=== PATIENT | male | born 1990 | race Caucasian/White ===

== ENCOUNTER 2017-08-28 17:16 | Emergency (ER) | payer SELFPAY ==
[~2017-08-28] VITALS: Ht 182.9 cm; Wt 104.3 kg
--- NOTE | 2017-08-28 17:20 | NUR ---
BIB [facility] 58,NOTED TO BE DROWSY AND DIFFICULT TO AROUSE WHEN HE WALKED INTO A REHAB; NARCAN 2 MG IVP GIVEN BY EMS, WITH IMPROVEMENT. PATIENT ARRIVED A/OX 2. BREATHING EVEN AND UNLABORED. NO SOB, NAD. VITALS STABLE. SAFETY AND COMFORT MEASURES IN PLACE. AWAITING MD ORDERS.
--- NOTE | 2017-08-28 17:34 | NUR ---
CALL BACK FROM [place] FERNANDE[place] AT [phone], STS HE WILL HAVE PT'S MOM CALL US. [facility]. HE FURTHER SAID THAT HE HOPE THE PATIENT WOULD GO BACK THERE.
--- NOTE | 2017-08-28 17:41 | NUR ---
CORRECTION:[facility]
--- NOTE | 2017-08-28 18:06 | NUR ---
PATIENTS MOTHER CALLED, ETA 1 HR.
--- NOTE | 2017-08-28 19:14 | NUR ---
Kashmir sanders in [facility] - 08/28/17 at 1915 by SHARON REPORT RECEIVED FROM TAYLOR BRUNO FOR MARIELLE.
--- NOTE | 2017-08-28 19:14 | NUR ---
REPORT GIVEN TO BENJAMIN VAZQUEZ FOR MARIELLE.
--- NOTE | 2017-08-28 19:15 | NUR ---
REPORT RECEIVED FROM TAYLOR BRUNO FOR MARIELLE.
--- NOTE | 2017-08-28 20:50 | NUR ---
IV removed. Catheter intact and site benign. Pressure and 4x4 applied to site. No bleeding noted. Patient discharged with family to home in stable condition. Written and verbal after care instructions given. Patient verbalizes understanding of instruction. Patient is awake and alert to self, day, and place. Patient ambulatory with a steady gait.
[2017-08-28 20:52] VITALS: BP 115/71
== END 2017-08-28 20:53 | disposition home or self-care (01) ==
LOC: ER 17:17
DX: T40.1X1A Poisoning by heroin, accidental (unintentional), initial encounter (principal); T42.4X1A Poisoning by benzodiazepines, accidental (unintentional), initial encounter; F11.10 Opioid abuse, uncomplicated; F13.10 Sedative, hypnotic or anxiolytic abuse, uncomplicated; F10.10 Alcohol abuse, uncomplicated; F17.200 Nicotine dependence, unspecified, uncomplicated; Y92.89 Other specified places as the place of occurrence of the external cause
CPT/HCPCS: 99291; A4606; Z7610